=== PATIENT | female | born 1985 | race African-American/Black ===

== ENCOUNTER 2017-10-26 04:05 | Emergency (ER) | payer BC ==
[2017-10-26] MEDS: IPRATRPIUM/ALBUTEROL 0.5/2.5MG 3 ML NEBU. NEB (04:41)
== END 2017-10-26 05:14 | disposition home or self-care (01) ==
LOC: ER 04:05
DX: R05 Cough (principal); R51 Headache; R09.81 Nasal congestion; R50.9 Fever, unspecified; M79.1 Myalgia; R06.2 Wheezing; E11.9 Type 2 diabetes mellitus without complications
CPT/HCPCS: 94640; 99283-25; J7620

== ENCOUNTER 2019-10-30 05:17 | Emergency (ER) | payer BC ==
[~2019-10-30] VITALS: Ht 170.2 cm; Wt 138.0 kg
[2019-10-30] MEDS ORDERED: IPRATRPIUM/ALBUTEROL 0.5/2.5MG 3 ML NEBU. NEB ONE (05:45)
--- NOTE | 2019-10-30 06:02 | PHYS DOC ---
Past Medical History Past Medical History: Asthma, Diabetes-Type II (CARON GLASER Jr., DO) Past Surgical History: No Surgical History (CARON GLASER Jr., DO) Alcohol Use: Occasionally Drug Use: None (CARON GLASER Jr., DO) Adult General Chief Complaint Chief Complaint: SHORTNESS OF BREATH HPI HPI Patient is a 34 year old female who presents with complaint of cough, congestion and wheezing for the last day. Patient states that she was just recently prescribed a rescue inhaler and she has used it twice today and she still feeling some shortness of breath. She denies any fever. She denies any chest pain. Patient indicates that shortness of breath is worsened with exertion. She also indicates that the cough and wheezing seems to be worse out of the cold.[] (CARON GLASER Jr., DO) Review of Systems Review of Systems Constitutional: Denies fever or chills [] HENT: Positive congestion and sore throat [] Respiratory: Positive cough and shortness of breath [] Cardiovascular: No additional information not addressed in HPI [] Integument: Denies rash or skin lesions [] Neurologic: Denies headache, focal weakness or sensory changes [] All other systems were reviewed and found to be within normal limits, except as documented in this note. (CARON GLASER Jr., DO) Current Medications Current Medications Current Medications Medications (Trade) Dose Ordered Sig/Dami Start Time Stop Time Status Last Admin Dose Admin Albuterol/ Ipratropium (Duoneb) 3 ml 1X ONCE 10/30/19 05:45 10/30/19 05:46 DC 10/30/19 05:58 3 ML (JACQUES TAN MD) Allergies Allergies Allergies Coded Allergies Type Severity Reaction Last Updated Verified No Known Drug Allergies 10/26/17 No (JACQUES TAN MD) Physical Exam Physical Exam Constitutional: Well developed, well nourished, no acute distress, non-toxic appearance. [] HENT: Normocephalic, atraumatic, bilateral external ears normal, oropharynx moist, no oral exudates, nose normal. [] Neck: Normal range of motion, no tenderness, supple, no stridor. [] Cardiovascular: Regular rate and rhythm[] Lungs & Thorax: Good air movement is noted throughout with respiratory and expiratory wheezes bilaterally to auscultation [] Skin: Warm, dry, no erythema, no rash. [] Extremities: No tenderness, no cyanosis, no clubbing, ROM intact. [] Neurologic: Alert and oriented X 3, no focal deficits noted. [] (CARON GLASER Jr., DO) Current Patient Data Vital Signs Vital Signs Date Time Temp Pulse Resp B/P (MAP) Pulse Ox O2 Delivery O2 Flow Rate FiO2 10/30/19 06:28 92 20 143/88 (106) 95 Room Air 10/30/19 05:30 98.6 98.6 (JACQUES TAN MD) EKG EKG [] (CARON GLASER Jr., DO) Radiology/Procedures Radiology/Procedures [] (CARON GLASER Jr., DO) Radiology/Procedures [facility] [address] [place], [place] [id number] IMAGING REPORT Signed PATIENT: NILO LEVYACCOUNT: [id number] : 1985 LOCATION: ER AGE: 34 SEX: F EXAM STATUS: REG ER ORD. PHYSICIAN: CARON GLASER Jr., DO REASON: cough PROCEDURE: CHEST PA & LATERAL CHEST PA LATERAL History: Cough Comparison: None. Findings: 2 views of the chest are submitted. There is no lobar infiltrate, pneumothorax, or effusion. Pericardial cardiac silhouette is within normal limits in size. There is some calcified left perihilar nodes. There is artifact created by patient's hair. Impression: 1. No lobar infiltrate is identified. Electronically signed by: Yosef Rock MD (10/30/2019 7:31 AM) [facility] DICTATED and SIGNED BY: YOSEF ROCK MD DATE: 10/30/19 0731 (JACQUES TAN MD) Course & Med Decision Making Course & Med Decision Making Pertinent Labs and Imaging studies reviewed. (See chart for details) [] (CARON GLASER Jr., DO) Course & Med Decision Making Patient feels better. O2 sats is more than 95% at room air. Does not have wheezing. Chest x-ray was unremarkable. Plan to discharge patient home with diagnosis of acute bronchitis and reactive airway disease. (JACQUES TAN MD) Dragon Disclaimer Dragon Disclaimer This electronic medical record was generated, in whole or in part, using a voice recognition dictation system. (CARON GLASER Jr. DO) Departure Departure Impression: Primary Impression: Asthma exacerbation Disposition: 01 HOME, SELF-CARE Condition: IMPROVED Referrals: OWEN KENDALL MD (PCP) Patient Instructions: Acute Bronchitis, Asthma Prevention-Brief, Asthma, Adult Additional Instructions: Drink plenty of liquids Follow-up with your primary care physician in 3-5 days Return to ER if not getting better Take home inhaler Thank you for visiting [facility]. We appreciate you trusting us with your care. If any additional problems come up don't hesitate to return to visit us. Please follow up with your primary care provider so they can plan additional care if needed and know about the problem that you had. If symptoms worsen come back to the Emergency Department. Any concerning symptoms that start such as chest pain, shortness of air, weakness or numbness on one side of the body, running high fevers or any other concerning symptoms return to the ER. Scripts Azithromycin (ZITHROMAX) 250 Mg Tablet 250 MG PO as directed for ANTI-BIOTIC, #6 TAB 0 Refills Take 2 PO x 1 days Then take 1 PO q 24 hour for the next 4 days Prov: JACQUES TAN MD 10/30/19 Benzonatate (TESSALON PERLE) 100 Mg Capsule 1 CAP PO TID for cough, #21 CAP Prov: JACQUES TAN MD 10/30/19 Methylprednisolone (MEDROL) 4 Mg Tab.ds.pk 1 PKG PO UD for inflammation, #1 PKG Prov: JACQUES ATN MD 10/30/19 Problem Qualifiers Primary Impression: Asthma exacerbation Asthma severity: unspecified severity Asthma persistence: unspecified Qualified Codes: J45.901 - Unspecified asthma with (acute) exacerbation CARON GLASER Jr., DO Oct 30, 2019 06:02 JACQUES TAN MD Oct 30, 2019 07:47
[2019-10-30 06:28] VITALS: BP 143/88
--- NOTE | 2019-10-30 07:34 | RAD ---
CHEST PA LATERAL History: Cough Comparison: None. Findings: 2 views of the chest are submitted. There is no lobar infiltrate, pneumothorax, or effusion. Pericardial cardiac silhouette is within normal limits in size. There is some calcified left perihilar nodes. There is artifact created by patient's hair. Impression: 1. No lobar infiltrate is identified. Electronically signed by: Satya Rock MD (10/30/2019 7:31 AM) [facility]
[2019-10-30] MEDS ORDERED: BENZ100C PO (07:46)
[2019-10-30] MEDS ORDERED: METH4TAB2 PO (07:46)
[2019-10-30] MEDS ORDERED: AZIT250T PO (07:46)
== END 2019-10-30 08:04 | disposition home or self-care (01) ==
LOC: ER 05:17
DX: J45.901 Unspecified asthma with (acute) exacerbation (principal); R05 Cough; E11.9 Type 2 diabetes mellitus without complications
CPT/HCPCS: 71046; 94640; 99284; J7620